=== PATIENT | male | born 1995 | race Caucasian/White ===

== ENCOUNTER 2021-05-15 02:22 | Emergency (ER) | payer OTHER ==
[~2021-05-15] VITALS: Ht 172.7 cm; Wt 87.1 kg
[2021-05-15 02:35] VITALS: BP 136/99
--- NOTE | 2021-05-15 02:47 | NUR ---
patient to bed 7 ambulatory
--- NOTE | 2021-05-15 02:57 | NUR ---
25 Y/O MALEBIB SELF , C/O TACHYCARDIA AND SORE NOSTRIL. PT STATES HIS NOSTRIL HURTS AND HIS HEART IS RACING S/P ALCOHOL AND COCAINE EARLIER THIS EVENING. DENIES N/V/D; SKIN IS PINK/WARM/DRY; AAOX4 WITH EVEN AND STEADY GAIT; LUNGS CLEAR BL; HR EVEN AND REGULAR; PT DENIES ANY FEVER, CP, SOB, OR COUGH AT THIS TIME; PATIENT STATES PAIN OF 4/10 AT THIS TIME; VSS; PATIENT POSITIONED FOR COMFORT; HOB ELEVATED; BEDRAILS UP X1; BED DOWN. ER MD MADE AWARE OF PT STATUS. NO PMH NKA DENIES MEDS
[2021-05-15] MEDS ORDERED: NACL 0.9% 500 ML IV ONE (03:00)
[2021-05-15] MEDS ORDERED: LORazepam 2 MG/ML VIAL IVP ONE (03:00)
[2021-05-15] MEDS ORDERED: ONDANSETRON 4 MG/2 ML VIAL IVP ONE (03:00)
--- NOTE | 2021-05-15 03:38 | NUR ---
PT IS REFUSING TO HAVE THE CBC AND CMP BLOOD DRAW.
[2021-05-15 04:04] VITALS: BP 136/99
--- NOTE | 2021-05-15 04:04 | NUR ---
Patient discharged with v/s stable. Written and verbal after care instructions given and explained. Patient verbalized understanding. Ambulatory with steady gait. All questions addressed prior to discharge. Advised to follow up with PMD. VSS, A/Ox4, pt is ambulatory/o assistance, unlabored breathing, and calm demeanor.
--- NOTE | 2021-05-17 12:14 | NUR ---
LATE ENTRY- IV NORMAL SALINE DISCONTINUED AT 0404.
== END 2021-05-15 04:04 | disposition home or self-care (01) ==
LOC: MED 02:22
DX: F41.9 Anxiety disorder, unspecified (principal); R53.81 Other malaise; R00.2 Palpitations
CPT/HCPCS: 93005; 96361; 96374; 96375; 99284; J2060; J2405; J7030